=== PATIENT | male | born 1970 | race Caucasian/White ===

== ENCOUNTER 2017-11-17 21:53 | Emergency (ER) | payer SELFPAY ==
[2017-11-17] MEDS ORDERED: ORPHENADRINE CITRATE 30 MG/ML AMP IM ONE (22:21)
[2017-11-17] MEDS ORDERED: KETOROLAC TROMETHAMINE INJ 60 MG/2 ML VIAL IM ONE (22:21)
--- NOTE | 2017-11-17 22:39 | ED.PDOC ---
History of Present Illness - General Chief Complaint: Back Pain or Injury Stated Complaint: hurt his back Time Seen by Provider: 11/17/17 22:04 Source: patient Exam Limitations: no limitations Additional Information: WAS LIFTING A BOAT TRAILER ON THE BALL, C/O PAIN TO LOWER BACK. SIMILAR TO PREVIOUS - History of Present Illness Timing/Duration: 4-6 hours Quality/Severity: moderate, sharpness Back Pain Location: lumbar spine Back Pain Radiation: other - NONE Improving Factors: nothing Worsening Factors: movement Allergies/Adverse Reactions: Allergies NO KNOWN ALLERGY Allergy (Verified 11/17/17 22:07) Home Medications: Ambulatory Orders Cyclobenzaprine HCl [Flexeril] 10 mg PO TID PRN #15 tab 11/17/17 Indomethacin 50 mg PO TID PRN #14 cap 11/17/17 Review of Systems - Review of Systems Constitutional: Denies: chills, fever EENTM: States: no symptoms reported Respiratory: States: no symptoms reported Cardiology: States: no symptoms reported Gastrointestinal/Abdominal: Denies: nausea, vomiting Genitourinary: States: other - NO INCONTINENCE. Musculoskeletal: States: back pain. Denies: neck pain Skin: States: no symptoms reported Neurological: Denies: numbness, weakness Endocrine: States: no symptoms reported Hematologic/Lymphatic: States: no symptoms reported Past Medical History (General) - Patient Medical History Hx Hypertension: Yes Surgical History: other - Vaccination History Hx Tetanus, Diphtheria Vaccination: Yes Hx Influenza Vaccination: No - Social History Hx Tobacco Use: No Hx Alcohol Use: Yes Family Medical History - Family History Mother Hx Family Diabetes: Yes Physical Exam - Physical Exam General Appearance: Alert Eyes, Ears, Nose, Throat Exam: PERRL/EOMI, normal ENT inspection Gastrointestinal/Abdominal: non tender, soft Back Exam: other - MOD TTP LUMBOSACRAL AREA, L>R. NO MIDLINE TTP Extremity Exam: no evidence of injury, normal range of motion Neurologic: no motor/sensory deficits, alert, other - SENSATION INTACT, NO FOOT DROP Skin Exam: normal color, warm/dry Progress - Progress Progress: 11/17/17 22:54 FEELS BETTER. Departure - Departure Clinical Impression: Lumbosacral strain Qualifiers: Encounter type: initial encounter Qualified Code(s): S39.012A - Strain of muscle, fascia and tendon of lower back, initial encounter Time of Disposition: 22:55 Disposition: Discharge to Home or Self Care Condition: Good Departure Forms: ED Discharge - Pt. Copy, Patient Portal Self Enrollment Instructions: DI for Low Back Pain Prescriptions: Cyclobenzaprine HCl [Flexeril] 10 mg PO TID PRN #15 tab PRN Reason: Pain Indomethacin 50 mg PO TID PRN #14 cap PRN Reason: Pain Home Medications: Ambulatory Orders Cyclobenzaprine HCl [Flexeril] 10 mg PO TID PRN #15 tab 11/17/17 Indomethacin 50 mg PO TID PRN #14 cap 11/17/17
[2017-11-17] MEDS ORDERED: HYDROCOD/APAP 5/325 (ER DISP) #3 TAB PO ONE (23:09)
[2017-11-17 23:23] VITALS: BP 123/78; TEMP 98.9; O2SAT 95
== END 2017-11-17 23:23 | disposition home or self-care (01) ==
LOC: ER 21:53
DX: S39.012A Strain of muscle, fascia and tendon of lower back, initial encounter (principal); I10 Essential (primary) hypertension; X50.0XXA Overexertion from strenuous movement or load, initial encounter; Y92.9 Unspecified place or not applicable
CPT/HCPCS: J1885; J2360